=== PATIENT | male | born 1975 | race Caucasian/White ===

== ENCOUNTER 2021-03-17 13:56 | Emergency (ER) | payer SELFPAY | END 2021-03-17 17:04 | disposition left against medical advice (07) | LOC: MW.ED 13:56 | DX: Z53.21 Procedure and treatment not carried out due to patient leaving prior to being seen by health care provider (principal) | CPT/HCPCS: 81001; 87086 ==

== ENCOUNTER 2022-11-01 00:53 | Emergency (ER) | payer BC, MEDICAID ==
[2022-11-01] MEDS ORDERED: Albuterol/Ipratropium 3.0-0.5 MG/3 ML Neb Soln NEB ONE (01:29)
[2022-11-01] MEDS ORDERED: predniSONE 20 MG Tab PO ONE (02:08)
== END 2022-11-01 02:17 | disposition home or self-care (01) ==
LOC: MW.ED 00:53
DX: J45.901 Unspecified asthma with (acute) exacerbation (principal)
CPT/HCPCS: 99284; A9270; J7620-GY

== ENCOUNTER 2024-12-16 13:18 | Emergency (ER) | payer SELFPAY ==
[2024-12-16] MEDS: Norepinephrine Bit/D5W Premix 250 ML IV SCH (13:18)
[2024-12-16] MEDS: EPINEPHrine in 0.9 %/Sod Chlor 250 ML IV SCH ×2 (13:22→14:32)
[2024-12-16] MEDS ORDERED: Sodium Chloride 0.9% 10 ML Syringe FLUSH PRN (13:23)
[2024-12-16] MEDS ORDERED: Sodium Chloride 0.9% 2.5 ML Syringe FLUSH PRN (13:23)
[2024-12-16] MEDS: DOPamine/Dextrose 5%-Water 400 MG/250 ML BAG IV SCH (13:28)
[2024-12-16 13:42] LABS: BASOPHILS ABSOLUTE AUTO 0.03 K/uL (0.00-0.20); BASOPHILS PERCENT AUTO 0.5 % (0.0-1.0); EOSINOPHILS ABSOLUTE AUTO 0.28 K/uL (0.00-0.45); EOSINOPHILS PERCENT AUTO 4.3 % (0.0-6.0); IMMATURE GRAN ABSOLUTE AUTO 0.29 K/uL (0.00-0.05); IMMATURE GRAN PERCENT AUTO 4.5 % (0.0-0.4); LYMPHOCYTES ABSOLUTE AUTO 4.38 K/uL (1.00-4.80); LYMPHOCYTES PERCENT AUTO 67.3 % (24.0-44.0); MEAN PLATELET VOLUME 10.0 fL (9.4-12.4); MONOCYTES ABSOLUTE AUTO 0.43 K/uL (0.00-0.80); MONOCYTES PERCENT AUTO 6.6 % (0.0-8.0); NEUTROPHILS ABSOLUTE AUTO 1.10 K/uL (1.80-7.70); NEUTROPHILS PERCENT AUTO 16.8 % (41.0-71.0); NRBC ABSOLUTE 0.03 K/uL (0.00-0.02); NRBC PERCENT 0.5 /100WBC (0.0-0.2); PLATELET COUNT,PLT 101 K/uL (150-400); RED BLOOD CELL COUNT 4.44 M/uL (4.52-5.90); WHITE BLOOD CELL COUNT,WBC 6.51 K/uL (3.9-11.3)
[2024-12-16] MEDS ORDERED: Naloxone 4 MG in Sodium Chloride 0.9% 250 ML IV SCH (13:45)
[2024-12-16 13:47] LABS: GLUCOSE,URINE NEGATIVE (NEGATIVE); OCCULT BLOOD,URINE SMALL (NEGATIVE)
[2024-12-16 13:57] LABS: AMPHETAMINES SCREEN, URINE PRESUMPTIVE POSITIVE (CUTOFF=500); BUPRENORPHINE SCREEN,URINE NEGATIVE (CUTOFF=10); METHADONE SCREEN, URINE NEGATIVE (CUTOFF=200); METHAMPHETAMINES SCREEN, URINE PRESUMPTIVE POSITIVE (CUTOFF=500); OXYCODONE SCREEN,URINE NEGATIVE (CUT0FF=100); PCP SCREEN,URINE NEGATIVE (CUTOFF=25); THC SCREEN,URINE 20 NG/ML NEGATIVE (CUTOFF=50)
[2024-12-16 14:02] LABS: A/G RATIO 1.2 (0.9-1.6); ALANINE AMINOTRANSFERASE,ALT 270 IU/L (14-63); ASPARTATE AMNIOTRANSFERASE,AST 273 IU/L (15-37); BILIRUBIN TOTAL 0.5 mg/dL (0.2-1.0); BLOOD UREA NITROGEN,BUN 13 mg/dL (7.0-18.0); CARBON DIOXIDE,CO2 17.0 mmol/L (21.0-32.0); CHLORIDE,CL 105 mmol/L (98-107); CREATININE 1.5 mg/dL (0.8-1.3); ETHANOL BLOOD MEDICAL 14 mg/dL; GLUCOSE RANDOM 287 mg/dL (74-106); POTASSIUM,K 4.9 mmol/L (3.5-5.1); PRO B-TYPE NATRIUR PEPT,BNPPRO 175 pg/mL (0-125); PROTEIN TOTAL,TP 5.0 g/dL (6.4-8.2); SODIUM,NA 140 mmol/L (136-148)
[2024-12-16 14:05] LABS: ESTIMATED GFR 56 mL/min (>60)
[2024-12-16] MEDS: fentaNYL 50 MCG/ML SDV IVPUSH ONE (14:10)
[2024-12-16] MEDS: propofoL 1,000 MG/100 ML 100 ML IV SCH (14:12)
[2024-12-16 14:16] LABS: APPEARANCE,URINE HAZY; EPITHELIAL CELLS,URINE RARE (NONE-FEW)
[2024-12-16 14:22] LABS: INR 1.18 (0.86-1.11)
[2024-12-16 14:23] LABS: D-DIMER QUANTITATIVE > 35.20 mg/L FEU (0.00-0.50)
[2024-12-16 14:25] LABS: LACTIC ACID 12.0 mmol/L (0.4-2.0)
[2024-12-16] MEDS: Norepinephrine Bit/D5W Premix 250 ML ONE (14:33)
[2024-12-16] MEDS: EPINEPHrine in 0.9 %/Sod Chlor 250 ML ONE (14:34)
[2024-12-16] MEDS: Magnesium Sulfate 2 GM/50 mL 2 GM in Premix Bag 1 BAG IV ONE (14:35)
[2024-12-16] MEDS: Atropine 0.1 MG/ML 10 ML Syringe IVPUSH ONE ×2 (14:36→18:03)
[2024-12-16] MEDS: methylPREDNISolone Sodium Succinate 125 MG/2 ML SDV IVPUSH ONE (14:36)
[2024-12-16] MEDS: Lactated Ringers 1,000 ML IV STA (14:39)
[2024-12-16] MEDS: Calcium Chloride 10% 1 GM/10 ML Syringe IVPUSH ONE (17:57)
[2024-12-16] MEDS: Calcium Gluconate 10% 1 GM/10 ML SDV IVPUSH ONE (17:57)
== END 2024-12-16 15:16 ==
LOC: MW.ED 13:18
DX: I46.9 Cardiac arrest, cause unspecified (principal); J45.909 Unspecified asthma, uncomplicated; Z79.51 Long term (current) use of inhaled steroids; Z79.899 Other long term (current) drug therapy
CPT/HCPCS: 31500; 36415; 51702; 71045; 80053; 80305; 80307; 81001; 83605; 83690; 83735; 83880; 84484; 85025; 85379; 85610; 86850; 86900; 86901; 87040; 87077; 87154; 87186; 92950; 96365; 96366; 96368; 96375; 99291; 99292; J0171; J0461; J1265; J2704; J2919; J3010; J3475; J3490; J7030; J7050; J7620; 99285; A9270-GY; J7120